=== PATIENT | male | born 1985 | race Caucasian/White ===

== ENCOUNTER 2021-04-30 09:30 | Emergency (ER) | payer OTHER ==
[~2021-04-30] VITALS: Ht 180.3 cm; Wt 68.0 kg
== END 2021-04-30 11:06 | disposition home or self-care (01) ==
LOC: ER 09:30
DX: J40 Bronchitis, not specified as acute or chronic (principal); J06.9 Acute upper respiratory infection, unspecified; Z87.891 Personal history of nicotine dependence
CPT/HCPCS: 71046; 99283-25